=== PATIENT | female | born 1990 | race Caucasian/White ===

== ENCOUNTER 2019-03-20 11:32 | Emergency (ER) | payer BC ==
[~2019-03-20] VITALS: Ht 162.6 cm; Wt 58.1 kg
[2019-03-20 12:06] VITALS: BP 119/73
[2019-03-20] MEDS ORDERED: birth control pill ORAL (12:11)
[2019-03-20] MEDS ORDERED: ROBAXIN-750750 MG PO (12:28)
[2019-03-20] MEDS ORDERED: IBUPROFEN600 MG ORAL (12:28)
[2019-03-20 12:30] VITALS: BP 119/68
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
--- NOTE | 2019-03-20 12:30 | NUR ---
ER DISCHARGE NOTE: Patient is cleared to be discharged per ERMD, pt is aox4, on room air, with stable vital signs. pt was given dc and prescription instructions, pt was able to verbalize understanding, pt id band removed. pt is able to ambulate with steady gait. pt took all belongings.
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
== END 2019-03-20 12:30 | disposition home or self-care (01) ==
LOC: EMR 12:25
DX: R51 Headache (principal); M54.2 Cervicalgia; T14.8XXA Other injury of unspecified body region, initial encounter; V43.62XA Car passenger injured in collision with other type car in traffic accident, initial encounter; Y92.410 Unspecified street and highway as the place of occurrence of the external cause
CPT/HCPCS: 99282